=== PATIENT | male | born 1960 | race Caucasian/White ===

== ENCOUNTER 2016-09-17 03:35 | Emergency (ER) | payer OTHER ==
[2016-09-17] MEDS ORDERED: MORPHINE SULFATE 10 MG/ML SYRINGE. ONE (04:40)
[2016-09-17] MEDS ORDERED: KETOROLAC 30 MG/ML VIAL. ONE (04:40)
[2016-09-17] MEDS ORDERED: ONDANSETRON PF 4 MG/2 ML VIAL. ONE (04:40)
[2016-09-17] MEDS ORDERED: IV NORMAL SALINE 1,000 ML BAG ONE (04:40)
[2016-09-17] MEDS ORDERED: metroNIDAZOLE 500mg PREMIX 500 MG/100 ML BAG IV ONE (04:40)
[2016-09-17 08:52] LABS: BASO % 1 % (0-3); EOS # 0.4 x10^3/uL (0.0-0.7); EOS % 6 % (0-3); HEMATOCRIT 44.2 % (39.0-53.0); HEMOGLOBIN 14.6 g/dL (13.0-17.5); LYMPH # 2.1 x10^3/uL (1.0-4.8); LYMPH % 29 % (24-48); MEAN CORPUSCULAR HEMOGLOBIN 29 pg (25-35); MEAN CORPUSCULAR HGB CONC 33 g/dL (31-37); MEAN CORPUSCULAR VOLUME 87 fL (79-100); MONO # 0.5 x10^3/uL (0.0-1.1); MONO % 7 % (0-9); NEUT # 4.2 x10^3uL (1.8-7.7); NEUT % 57 % (31-73); PLATELET COUNT 178 x10^3/uL (140-400); RED BLOOD COUNT 5.06 x10^6/uL (4.30-5.70); RED CELL DISTRIBUTION WIDTH 13.5 % (11.5-14.5); WHITE BLOOD COUNT 7.3 x10^3/uL (4.0-11.0)
[2016-09-17 08:54] LABS: ALBUMIN 3.4 g/dL (3.4-5.0); CALCIUM 8.6 mg/dL (8.5-10.1); CREATININE 1.5 mg/dL (0.7-1.3); DIRECT BILIRUBIN 0.1 mg/dL (0.0-0.2); POTASSIUM 3.9 mmol/L (3.5-5.1); TOTAL BILIRUBIN 0.3 mg/dL (0.2-1.0); TOTAL PROTEIN 6.6 g/dL (6.4-8.2)
[2016-09-17 08:57] LABS: AMPHETAMINE/METHAMPHETAMINE NEG (NEG); BARBITURATES NEG (NEG); BENZODIAZEPINES NEG (NEG); CANNABINOIDS NEG (NEG); COCAINE NEG (NEG); METHADONE NEG (NEG); OPIATES NEG (NEG); PHENCYCLIDINE NEG (NEG)
[2016-09-17 08:58] LABS: BILIRUBIN,URINE NEG (NEG); CLARITY,URINE CLEAR; COLOR,URINE YELLOW; GLUCOSE,URINE NEG (NEG); NITRITE,URINE NEG (NEG); RBC,URINE 0 /HPF (0-2); UROBILINOGEN,URINE 0.2 mg/dL (0.2 mg/dL); WBC,URINE OCC /HPF (0-4)
--- NOTE | 2016-09-17 08:58 | RAD ---
Right upper quadrant abdominal ultrasound, 09/17/2016: History: Right upper quadrant pain This final report is being issued on delayed basis due to computer issues. There are 2 foci of increased echogenicity present in the gallbladder with associated posterior acoustic shadowing. One of these is mobile while the other appears to be lodged in the gallbladder neck. The gallbladder sheppard are not thickened. The patient was reportedly not tender to transducer pressure over the gallbladder region. No bile duct dilatation is seen. The visualized portions of the liver and right kidney are unremarkable. The pancreas was largely obscured by overlying bowel. IMPRESSION: Cholelithiasis
[2016-09-17 08:59] LABS: BACTERIA,URINE 0 /HPF (0-FEW); SQUAMOUS EPITHELIAL CELL,UR OCC /LPF
--- NOTE | 2016-09-17 10:21 | EKG ---
[address] [address] Test Date: 2016-09-17 Test Time: 03:45:02 Pat Name: MARCO SYKES Department: Room: Gender: M Solution Manager: : [id number] Requested By: RADHA MANLEY Order Number: [id number] Reading MD: Asa Nielsen Measurements Intervals [place] Rate: 50 P: 38 MS: 162 QRS: 12 QRSD: 82 T: 33 QT: 404 QTc: 371 Interpretive Statements SINUS RHYTHM Electronically Signed On 09-17-2016 13:24:59 CDT by Asa Nielsen
== END 2016-09-17 06:03 | disposition home or self-care (01) ==
LOC: ER 03:35
DX: K80.10 Calculus of gallbladder with chronic cholecystitis without obstruction (principal); N28.9 Disorder of kidney and ureter, unspecified
CPT/HCPCS: 36415; 76705; 80048; 80076; 80305; 80320; 81001; 83605; 83690; 84484; 85027; 93005; 99285; J1885; J2270; J2405; J3490; G0480; G0481; J7030

== ENCOUNTER 2018-07-03 21:55 | Emergency (ER) | payer OTHER ==
[~2018-07-03] VITALS: Ht 172.7 cm; Wt 90.7 kg
[2018-07-03] MEDS ORDERED: CONTRAST GIVEN MC PRN (22:15)
[2018-07-03] MEDS ORDERED: MORPHINE SULFATE 4 MG/ML DISP.SYRIN. IV ONE ×2 (22:30→23:45)
[2018-07-03] MEDS ORDERED: IV NORMAL SALINE 1,000ML 1,000 ML IV ONE (22:30)
[2018-07-03] MEDS ORDERED: ONDANSETRON PF 4 MG/2 ML VIAL. IV ONE (22:30)
[2018-07-03] MEDS ORDERED: IV NORMAL SALINE 1,000ML 1,000 ML IV SCH (22:30)
[2018-07-03] MEDS ORDERED: IOHEXOL 300 MG/ML 75 ML VIAL. IV ONE (22:30)
[2018-07-03 22:31] LABS: BASO # 0.1 x10^3/uL (0.0-0.2); BASO % 1 % (0-3); EOS # 0.3 x10^3/uL (0.0-0.7); EOS % 4 % (0-3); HEMATOCRIT 42.8 % (39.0-53.0); HEMOGLOBIN 14.6 g/dL (13.0-17.5); LYMPH # 1.5 x10^3/uL (1.0-4.8); LYMPH % 19 % (24-48); MEAN CORPUSCULAR HEMOGLOBIN 30 pg (25-35); MEAN CORPUSCULAR HGB CONC 34 g/dL (31-37); MEAN CORPUSCULAR VOLUME 86 fL (79-100); MONO # 0.5 x10^3/uL (0.0-1.1); MONO % 6 % (0-9); NEUT # 5.9 x10^3uL (1.8-7.7); NEUT % 71 % (31-73); PLATELET COUNT 159 x10^3/uL (140-400); RED BLOOD COUNT 4.95 x10^6/uL (4.30-5.70); RED CELL DISTRIBUTION WIDTH 14.1 % (11.5-14.5); WHITE BLOOD COUNT 8.3 x10^3/uL (4.0-11.0)
[2018-07-03 22:47] LABS: ALBUMIN 3.4 g/dL (3.4-5.0); ALBUMIN/GLOBULIN RATIO 1.1 (1.0-1.7); CALCIUM 8.9 mg/dL (8.5-10.1); CREATININE 1.8 mg/dL (0.7-1.3); GFR 39.4; POTASSIUM 3.8 mmol/L (3.5-5.1); TOTAL BILIRUBIN 0.3 mg/dL (0.2-1.0); TOTAL PROTEIN 6.5 g/dL (6.4-8.2)
--- NOTE | 2018-07-03 22:52 | ED.ADGEN ---
Past History Past Medical History: No Pertinent History Past Surgical History: No Surgical History Alcohol Use: None Drug Use: None Adult General Chief Complaint Chief Complaint abd pain HPI HPI 57 years old male presented to the emergency department with abdominal pain started 4 hours ago and epigastric area radiating to the right upper quadrant associated with nausea this happened after he ate a burrito Review of Systems Review of Systems Constitutional: Denies fever or chills [] Eyes: Denies change in visual acuity, redness, or eye pain [] HENT: Denies nasal congestion or sore throat [] Respiratory: Denies cough or shortness of breath [] Cardiovascular: No additional information not addressed in HPI [] GI: Denies vomiting, bloody stools or diarrhea [] : Denies dysuria or hematuria [] Musculoskeletal: Denies back pain or joint pain [] Integument: Denies rash or skin lesions [] Neurologic: Denies headache, focal weakness or sensory changes [] Endocrine: Denies polyuria or polydipsia [] All other systems were reviewed and found to be within normal limits, except as documented in this note. Current Medications Current Medications Current Medications Medications (Trade) Dose Ordered Sig/Saroj Start Time Stop Time Status Last Admin Dose Admin Info (Do NOT chart on this entry -- for MONITORING) 1 each PRN DAILY PRN 07/03/18 22:15 07/05/18 22:14 Iohexol (Omnipaque 300 Mg/ml) 75 ml 1X ONCE 07/03/18 22:30 07/03/18 22:31 DC 07/03/18 22:28 75 ML Morphine Sulfate (Morphine 4mg Syringe) 4 mg 1X ONCE 07/03/18 22:30 07/03/18 22:31 DC 07/03/18 22:21 4 MG Ondansetron HCl (Zofran) 4 mg 1X ONCE 07/03/18 22:30 07/03/18 22:31 DC 07/03/18 22:21 4 MG Sodium Chloride 1,000 ml @ 1,000 mls/hr 1X ONCE 07/03/18 22:30 07/03/18 23:29 Allergies Allergies Allergies Coded Allergies Type Severity Reaction Last Updated Verified No Known Drug Allergies 07/03/18 No Physical Exam Physical Exam Constitutional: Well developed, well nourished, no acute distress, non-toxic appearance. [] HENT: Normocephalic, atraumatic, bilateral external ears normal, oropharynx moist, no oral exudates, nose normal. [] Eyes: PERRLA, EOMI, conjunctiva normal, no discharge. [] Neck: Normal range of motion, no tenderness, supple, no stridor. [] Cardiovascular:Heart rate regular rhythm, no murmur [] Lungs & Thorax: Bilateral breath sounds clear to auscultation [] Abdomen: Bowel sounds normal, soft, tenderness right upper quadrant, no masses , no pulsatile masses. [] Skin: Warm, dry, no erythema, no rash. [] Back: No tenderness, no CVA tenderness. [] Extremities: No tenderness, no cyanosis, no clubbing, ROM intact, no edema. [] Neurologic: Alert and oriented X 3, normal motor function, normal sensory function, no focal deficits noted. [] Psychologic: Affect normal, judgement normal, mood normal. [] Current Patient Data Vital Signs Vital Signs Date Time Temp Pulse Resp B/P (MAP) Pulse Ox O2 Delivery O2 Flow Rate FiO2 07/03/18 22:21 16 98 Room Air 07/03/18 22:06 97.6 59 Lab Results Laboratory Tests Test 07/03/18 22:17 White Blood Count 8.3 x10^3/uL (4.0-11.0) Red Blood Count 4.95 x10^6/uL (4.30-5.70) Hemoglobin 14.6 g/dL (13.0-17.5) Hematocrit 42.8 % (39.0-53.0) Mean Corpuscular Volume 86 fL (79-100) Mean Corpuscular Hemoglobin 30 pg (25-35) Mean Corpuscular Hemoglobin Concent 34 g/dL (31-37) Red Cell Distribution Width 14.1 % (11.5-14.5) Platelet Count 159 x10^3/uL (140-400) Neutrophils (%) (Auto) 71 % (31-73) Lymphocytes (%) (Auto) 19 % (24-48) L Monocytes (%) (Auto) 6 % (0-9) Eosinophils (%) (Auto) 4 % (0-3) H Basophils (%) (Auto) 1 % (0-3) Neutrophils # (Auto) 5.9 x10^3uL (1.8-7.7) Lymphocytes # (Auto) 1.5 x10^3/uL (1.0-4.8) Monocytes # (Auto) 0.5 x10^3/uL (0.0-1.1) Eosinophils # (Auto) 0.3 x10^3/uL (0.0-0.7) Basophils # (Auto) 0.1 x10^3/uL (0.0-0.2) EKG EKG [] Radiology/Procedures Radiology/Procedures [] Course & Med Decision Making Course & Med Decision Making Pertinent Labs and Imaging studies reviewed. (See chart for details) [] Final Impression Final Impression [] Problems: (1) Gallstones with obstruction of gallbladder Qualifiers: Dragon Disclaimer Dragon Disclaimer This electronic medical record was generated, in whole or in part, using a voice recognition dictation system. JOSE LUIS PALOMO MD Jul 03, 2018 22:51
[2018-07-03 23:02] VITALS: BP 151/98
--- NOTE | 2018-07-03 23:21 | RAD ---
INDICATION: Omni 300, 75ml IV. Upper abdominal pain. Hx gallstones
COMPARISON: None. TECHNIQUE: Axial CT images obtained through the abdomen and pelvis with contrast. One or more of the following individualized dose reduction techniques were utilized for this examination: 1. Automated exposure control; 2. Adjustment of the mA and/or kV according to patient size; 3. Use of iterative reconstruction technique. FINDINGS: Abdominal aorta is not aneurysmal. Mild calcific atherosclerosis. Fat-containing inguinal hernias. Gallstones including at gallbladder neck with some distention of the gallbladder. Mild periportal low density. No peripancreatic fluid collection. Spleen unremarkable. No left-sided hydronephrosis. Urinary bladder partially distended. No right-sided hydronephrosis. Colonic diverticulosis. Small fat-containing umbilical hernia. No periappendiceal inflammation. No dilated loops of bowel to suggest obstruction. IMPRESSION: 1. Gallstones are identified with distention of the gallbladder. Some gallstones are at the neck. Would correlate with symptoms in the region and if further evaluation is desired ultrasound could further evaluate. 2. There is also some periportal low density which could be secondary to mild periportal edema. 3. No evidence of hydronephrosis, bowel obstruction or appendicitis. Electronically signed by: Lance White MD (07/03/2018 11:18 PM) [facility]
== END 2018-07-03 23:54 | disposition short-term general hospital (02) ==
LOC: ER 21:55
DX: K80.81 Other cholelithiasis with obstruction (principal)
CPT/HCPCS: 36415; 74177; 80053; 83690; 85025; 96374; 96375; 96376; 99284; J2270; J2405; Q9967; J7030